=== PATIENT | male | born 1985 ===

== ENCOUNTER 2020-10-07 14:56 | Emergency (ER) | payer OTHER, SELFPAY ==
[2020-10-07 15:01] VITALS: BP 113/84; PULSE 76; RESP 18; TEMP 36.7; O2SAT 100
--- NOTE | 2020-10-07 15:18 | ED.GENADUL_ITS ---
Discharge Plan Disposition Patient Disposition: HOME Condition: Stable Discharge Details Clinical Impression: Finger laceration ED Provider: Ramirez Wilcox Home Meds and New Rx's Prescriptions: No Action No Known Home Meds RF: 0 Discharge Instructions Instructions: Finger Laceration (ED) Additional Instructions: Keep the wound clean and dry. You may change the outer dressing at least once daily however the Surgicel will adhere to the laceration and will eventually fall off on its own in the next 5-7 days. [id number] Tylenol and/or Motrin as directed for discomfort. Please watch for new or worsening symptoms and return to the ER for any concerns. Medical Decision Making 34-year-old gentleman presents with an avulsion laceration. Tetanus up-to-date. There is no clear indication for x-ray. There is no tissue to repair. We will place a Surgicel dressing. Wound thoroughly cleaned, then dressed appropriately. No bleeding. Patient tolerated well. HPI General Mode of arrival: ambulatory . Date/Time Provider Initiated Documentation: 10/07/20 14:57 . Limitations to Documentation: no limitations . Information obtained by: patient . HPI Narrative: This is a 34-year-old g entleman, [id number], denies past medical history. He states roughly 2.5 hours ago he sustained a laceration to his right index finger while using a mandolin at home. He reports the pain is mild in nature however after applying a dressing it has bled through 2 times. He has not taken anything for his discomfort. Denies numbness, tingling, weakness. Reports his tetanus status is up-to-date. Related Data Home Medications Medication Instructions Recorded Confirmed Unknown [No Known Home Meds] 10/07/20 10/07/20 Allergies Allergy/AdvReac Type Severity Reaction Status Date / Time No Known Allergies Allergy Unverified 10/07/20 15:09 General Stated Complaint: Laceration ROULA: 4 Review of Systems Constitutional Constitutional: Denies weakness Musculoskeletal Musculoskeletal: Denies numbness and Denies tingling Integumentary/Breasts Skin/Breast: Denies rash Neurologic Neurologic: Denies numbness, Denies tingling and Denies weakness [facility] Social History Smoking/Tobacco Use Status: Never Smoking risk assessment performed?: Yes Alcohol Intake: current Alcohol Intake frequency: a few times a week Substance use type: does not use Do you feel safe in your relationship?: Yes Exam Const General: cooperative, healthy appearing, comfortable and no acute distress Orientation: alert and awake [facility] Head: normal to inspection, normocephalic and atraumatic Eyes General: appearance normal, both eyes and all related structures Conjunctivae: conjunctivae normal Sclera: sclerae normal Neck Neck: normal visual inspection, trachea midline and supple Resp Effort & Inspection: normal respiratory effort and able to speak in complete sentences Cardio Rate: regular rate Rhythm: regular rhythm Skin General skin exam: no rashes or lesions noted Neuro General: patient alert, patient awake, moves all extremities and no focal motor deficits Cognition: normal cognition Speech: speech normal Gait: normal gait Motor: muscle tone normal throughout Sensory Exam: no sensory deficits noted Extrem Hand/finger images: 1. Right index finger avulsion type laceration that does not involve the na ilbed, nail, or any bony involvement. No active bleeding. Minimal localized discomfort. Neuro, vascular, tendon intact. Normal capillary refill Psych Appearance: grossly normal Mental Status: mental status grossly normal Course Vital Signs Vital signs: Vital Signs Temperature 36.7 C 10/07/20 15:01 Pulse 76 10/07/20 15:01 Respiratory Rate 18 10/07/20 15:01 Blood Pressure 113/84 10/07/20 15:01 Pulse Oximetry 100 10/07/20 15:01 Temperature 36.7 C 10/07/20 15:01 Temperature Source Skin 10/07/20 15:01 Pulse 76 10/07/20 15:01 Respiratory Rate 18 10/07/20 15:01 Respiratory Effort Short of Breath 10/07/20 15:04 Blood Pressure 113/84 10/07/20 15:01 Blood Pressure Position Sitting 10/07/20 15:01 Pulse Oximetry 100 10/07/20 15:01 Oxygen Delivery Method Room Air 10/07/20 15:01 Oxygen Flow Rate 0 10/07/20 15:01 Pain Level 5 10/07/20 15:01
[2020-10-07] MEDS: Cellulose,Oxidized 2X3 PKT 1 EACH MC (15:40)
== END 2020-10-07 15:49 | disposition home or self-care (01) ==
PROVIDERS: Emergency Provider Physician Assistant
DX: S61.210A Laceration without foreign body of right index finger without damage to nail, initial encounter (principal); W26.8XXA Contact with other sharp object(s), not elsewhere classified, initial encounter
CPT/HCPCS: 99282; 99283